=== PATIENT | female | born 1970 | race Caucasian/White ===

== ENCOUNTER → 2017-10-23 | Outpatient (CLI) | payer BC ==
--- NOTE | 2017-10-31 08:59 | Polysomnography ---
DATE OF STUDY: October 23, 2017 REFERRING PHYSICIAN: Kvng Magallanes MD HISTORY OF PRESENT ILLNESS: The patient reported snoring and difficulty sleeping at night. She also had fatigue and daytime somnolence. INTERPRETATION: Patient had a home sleep study. The patient slept for 462 minutes out of 473.5 minutes. The sleep efficiency was 91%. The sleep onset latency was 34 minutes. Patient never achieved REM sleep. There was a total of 4 apneic events and no hypopneic events. The apnea-hypopnea index was 4.9 events per hour. There is no [place] Sleep Score available. INTERPRETATION: Borderline mild obstructive sleep apnea. RECOMMENDATIONS 1. Achieve and maintain an ideal body weight. 2. Avoid sedatives or alcohol at night. 3. If the clinical suspicion for obstructive sleep apnea is high, obtain a full night polysomnography. Job#: [id number]
== END ==
LOC: SLEEP 16:46
PROVIDERS: ATTEND Internal Medicine
DX: G47.33 Obstructive sleep apnea (adult) (pediatric) (principal)